=== PATIENT | female | born 1975 | race Caucasian/White ===

== ENCOUNTER → 2023-02-13 | Outpatient (CLI) | payer BC ==
--- NOTE | 2023-02-13 11:13 | USB ---
Reason for Exam: Clinical finding. Patient History: Menarche at age 13. First Full-Term at age 23. Left ovary removed at age 36. Hysterectomy at age 36. Postmenopausal. Patient has history of breast feeding. Maternal aunt had breast cancer, age 45. Risk Values: Kae 5 year model risk: 0.8%. NCI Lifetime model risk: 9.4%. Technique: Method: Targeted. Findings: The lower section of the breast of the left breast, the axilla of the left breast and the retroareolar of the left breast were scanned. Simple cyst at the site of clinical concern left breast 6:00 1 cm from the nipple measuring 9 x 9 mm. No solid masses seen. Overall Assessment: Benign, BI-RAD 2 Management: Screening Mammogram of both breasts in 1 year. A clinical breast exam by your physician is recommended on an annual basis and results should be correlated with mammographic findings. This exam should not preclude additional follow-up of suspicious palpable abnormalities. Results were given to the patient verbally at the time of exam. Electronically signed and approved by: Deepak Brown M.D. Radiologis
--- NOTE | 2023-02-13 11:14 | MM ---
Reason for Exam: Clinical finding. Indicated Problems: Lump or thickening of the left side (size 4) for 1 Month(s). Patient History: Menarche at age 13. First Full-Term at age 23. Left ovary removed at age 36. Hysterectomy at age 36. Postmenopausal. Patient has history of breast feeding. Maternal aunt had breast cancer, age 45. Risk Values: Kae 5 year model risk: 0.8%. NCI Lifetime model risk: 9.4%. Tissue Density: The breast tissue is extremely dense which could obscure a lesion on mammography. Findings: Analyzed By CAD. There are benign calcifications seen bilaterally. Small nodular density suggested at the site of clinical concern left breast. No evidence for distortion. Ultrasound is recommended. Overall Assessment: Incomplete: need additional imaging evaluation, BI-RAD 0 Management: Diagnostic Breast Ultrasound of the left breast. . Results were given to the patient verbally at the time of exam. Patient should continue monthly self-breast exams. A clinical breast exam by your physician is recommended on an annual basis. This exam should not preclude additional follow-up of suspicious palpable abnormalities. Note on Kae scores and lifetime risk: 1. A Kae score greater than 3% is considered moderate risk. If this is the case, consider specialist referral to assess eligibility for a risk reducing agent. 2. If overall lifetime risk for the development of breast cancer is 20% or higher, the patient may qualify for future screening with alternating mammogram and breast MRI. Electronically signed and approved by: Deepak Brown M.D. Radiologis
== END | disposition home or self-care (01) ==
LOC: RADMAMWWP 08:13
PROVIDERS: ATTEND Family Medicine
DX: N63.20 Unspecified lump in the left breast, unspecified quadrant (principal); Z78.0 Asymptomatic menopausal state; Z80.3 Family history of malignant neoplasm of breast; Z90.721 Acquired absence of ovaries, unilateral
CPT/HCPCS: 77062; 77066

== ENCOUNTER → 2024-04-01 | Outpatient (CLI) | payer BC ==
--- NOTE | 2024-04-02 07:59 | US ---
EXAMINATION TYPE: US mass soft tissue chest/back DATE OF EXAM: 04/01/2024 COMPARISON: NONE CLINICAL INDICATION: Female, 48 years old with history of R22.9 LOCALIZED SWELLING,MASS LUMP; Patient feels lump/indent right buttock x 1 month TECHNIQUE: Right buttock scanned at area of concern. FINDINGS: Indistinct, hyperechoic area with some vascularity seen measurin.8 x 1.7 x 0.4 cm. No other abnormalities seen by ultrasound at this time. IMPRESSION: Nonspecific indistinct hyperechoic 1.7 cm nodule corresponding to the area of palpable a bnormality. Would recommend follow-up MRI.
== END | disposition home or self-care (01) ==
LOC: RADUSWWP 15:50
PROVIDERS: ATTEND Family Medicine
DX: R22.2 Localized swelling, mass and lump, trunk (principal)

== ENCOUNTER → 2024-04-20 | Outpatient (CLI) | payer BC ==
--- NOTE | 2024-04-24 12:35 | MR ---
EXAMINATION TYPE: MR pelvis wo/w con DATE OF EXAM: 04/20/2024 10:00 PM CLINICAL INDICATION: Female, 48 years old with history of R22.2; PHH, sudden deep indentation in righ t buttock after having a massage several weeks ago. patient placed marker next to indentation COMPARISON: Ultrasound 04/01/2024 TECHNIQUE: Triplane multisequence imaging was performed of the pelvis. IV Contrast: 5 cc Gadavist FINDINGS: Reproductive: Vagina: Unremarkable. Uterus: Uterus is surgically absent. Ovaries: Right ovarian intrinsic high T1 signal cyst with layering fluid fluid level fluid fluid leve l series series 1101 image 11. Bladder: Unremarkable. Bowel: Unremarkable as visualized. Peritoneum: No free fluid or lymphadenopathy. Lymph nodes: No evidence of adenopathy. Vasculature: Unremarkable. Musculoskeletal: Bone marrow signal is within normal signal intensity. No abnormality in area of palp able marker. No abnormal enhancement. Lipomatous tissue in the general area. Abdominal wall/soft tissues: Unremarkable. IMPRESSION: 1. No abnormality correlate to palpable right buttock marker. The muscles and subcutaneous tissues a re relatively symmetric. 2. Right ovarian hemorrhagic/proteinaceous cyst. [facility], , 04/24/2024 12:33 PM
== END | disposition home or self-care (01) ==
LOC: RADMRIMAIN 21:45
PROVIDERS: ATTEND Family Medicine
DX: R22.2 Localized swelling, mass and lump, trunk
CPT/HCPCS: 72197